=== PATIENT | female | born 1990 | race Caucasian/White ===

== ENCOUNTER → 2017-09-06 | Day surgery (SDC) | payer BC ==
[~2017-09-06] MED LIST: FENTANYL CITRATE/PF 100MCG/2 ML INJ ONE; GLYCOPYRROLATE INJ 1MG/ 5 ML SYR ONE; LIDOCAINE HCL 2% LOCAL INJ 5 ML SDV VIAL INJ ONE; MIDAZOLAM HCL 2 MG/2 ML VIAL ONE; PROPOFOL IV EMULSION 10 MG/ML 50 ML VIAL ONE; SERTRALINE HCL50 MG PO; XANAX0.5 MG PO
--- NOTE | 2017-09-06 17:53 | Operative Report ---
DATE OF PROCEDURE: September 06, 2017 REFERRING PHYSICIAN: Dr. Ryan Gottlieb. PREOPERATIVE DIAGNOSIS: POSTOPERATIVE DIAGNOSIS: PROCEDURE PERFORMED: Colonoscopy with biopsies. INDICATIONS FOR COLONOSCOPY: Chronic diarrhea, fecal urgency. MEDICATION: Patient was done under MAC. Please see anesthesiologist's note. PROCEDURE: With patient in left lateral decubitus position, flexible fiberoptic Olympus colonoscope was inserted into the rectum with ease and advanced all the way to the cecum. Mucosa overlying the cecum appeared to be within normal limits. The ileocecal valve was intubated and the scope was advanced into the terminal ileum. Biopsies were obtained from the terminal ileum. The scope was then withdrawn back into the colon. It was then withdrawn slowly and mucosa overlying the ascending, transverse, descending, sigmoid, and rectum revealed some mild patchy inflammatory changes; multiple random biopsies were obtained. The scope was then retroflexed into the distal rectum and small internal hemorrhoids were noted, none of which was actively bleeding. The scope was then straightened out and was subsequently withdrawn after securing an adequate stool specimen that was sent for the appropriate stool studies. Patient tolerated the procedure well. IMPRESSION 1. Colitis, patchy, mild; random biopsies obtained. 2. Proctitis, mild, biopsied. 3. Internal hemorrhoids, none actively bleeding. PLAN: Follow up histology. Follow up stool studies. Initiate Vsl#3 DS one p.o. daily and Bentyl 10 mg 1 p.o. t.i.d.. Check CRP, sed rate, and IBD panel. Job#: [id number] RACH cc:Ryan Gottlieb MD
[2017-09-06 18:36] LABS: WBC,FECAL (FECAL LACTOFERRIN) NEGATIVE (NEGATIVE)
[2017-09-07 11:59] LABS: C DIFFICILE TOXIN A&B AMP PROB NEGATIVE (NEGATIVE)
== END | disposition home or self-care (01) ==
LOC: OR 11:00
PROVIDERS: ATTEND Internal Medicine Gastroenterology
DX: K52.9 Noninfective gastroenteritis and colitis, unspecified (principal); K62.89 Other specified diseases of anus and rectum; K64.8 Other hemorrhoids; F41.9 Anxiety disorder, unspecified; Z68.26 Body mass index [BMI] 26.0-26.9, adult
CPT/HCPCS: 36415; 45380; 81025; 83630; 83993; 85651; 86140; 86256; 86671; 87045; 87177; 87328; 87493; J2001; J2250; 45378